=== PATIENT | female | born 1940 | race Caucasian/White ===

== ENCOUNTER → 2024-11-08 | Outpatient (CLI) | payer MEDICARE | END | disposition home or self-care (01) | LOC: SHCH 09:49 | PROVIDERS: ATTEND Internal Medicine | DX: I08.3 Combined rheumatic disorders of mitral, aortic and tricuspid valves (principal); I48.0 Paroxysmal atrial fibrillation | CPT/HCPCS: 93306 ==

== ENCOUNTER → 2024-11-28 | Outpatient (CLI) | payer MEDICARE ==
[2024-11-28 16:33] LABS: CREATININE 0.9 mg/dL (0.5-1.0); DIGOXIN 1.15 ng/mL (0.50-2.00); POTASSIUM 4.3 mmol/L (3.5-5.1)
== END | disposition home or self-care (01) ==
LOC: LAB 13:29
PROVIDERS: ATTEND Internal Medicine
DX: I48.91 Unspecified atrial fibrillation (principal); Z79.01 Long term (current) use of anticoagulants
CPT/HCPCS: 36415; 80048; 80162

== ENCOUNTER → 2024-12-18 | Outpatient (CLI) | payer MEDICARE ==
[2024-12-18] MEDS: REGADENOSON 0.4 MG/5 ML PF SYG IVP ONE (10:56)
== END | disposition home or self-care (01) ==
LOC: SHCH 08:41
PROVIDERS: ATTEND Internal Medicine
DX: I20.9 Angina pectoris, unspecified (principal); I42.9 Cardiomyopathy, unspecified; R06.00 Dyspnea, unspecified
CPT/HCPCS: 78452; 93017; J2785; A9500 ×2